=== PATIENT | male | born 1995 ===

== ENCOUNTER → 2025-04-21 19:07 | Outpatient (CLI) | payer SELFPAY ==
--- NOTE | 2025-04-21 | DI.RAD_ITS ---
Exam(s) XR KNEE RT 3V AP,LAT,JUDITH EXAM: XR KNEE RT 3V AP,LAT,JUDITH CLINICAL HISTORY: ACUTE PAIN OF RIGHT KNEE ISD-10: M25.561. TECHNIQUE: 2D digital imaging was performed. Three views. COMPARISON: No exams were available for comparison FINDINGS: BONES: No acute fracture is present. No bony destructive lesion is seen. JOINTS: The knee is normally aligned. No joint effusion is seen. SOFT TISSUE: Normal. IMPRESSION: Unremarkable radiographs of the right knee. The preliminary [facility] report was reviewed. DATA REPOSITORY: RADIATION DOSE DELIVERED:
--- NOTE | 2025-04-21 19:42 | DI.[facility]_ITS ---
PROCEDURE INFORMATION: Exam: XR Right Knee Exam date and time: 04/21/2025 7:16 PM Age: 29 years old Clinical indication: Injury or trauma; Fall; Work related; Blunt trauma; Knee; Right; Additional info: Medial right knee pain TECHNIQUE: Imaging protocol: Radiologic exam of the right knee. Views: 3 views. COMPARISON: No relevant prior studies available. FINDINGS: Bones/joints: Normal. Soft tissues: Normal. IMPRESSION: No acute abnormality seen to account for symptoms. Dictated and Authenticated by: Yuliya Alston MD. Orderin Sujit Grissom MD
== END ==
LOC: DI 19:08
PROVIDERS: Visit Provider Physician Assistant Medical
DX: M25.561 Pain in right knee (principal)
CPT/HCPCS: 73562